=== PATIENT | female | born 1960 | race Two or more races ===

== ENCOUNTER 2022-02-06 11:54 | Inpatient (IN) | payer OTHER ==
[~2022-02-06] VITALS: Ht 167.6 cm; Wt 66.7 kg
[2022-02-06] MEDS ORDERED: LORAZEPAM1 MG PO (14:24)
[2022-02-13] MEDS ORDERED: OPTIMAL D31250 MCG (08:35)
[2022-02-13] MEDS ORDERED: VALACYCLOVIR1000 MG (08:35)
[2022-02-13] MEDS ORDERED: BENADRYL25 MG (08:35)
[2022-02-14] MEDS ORDERED: TYLENOL ARTHRI650 MG PO (09:08)
[2022-02-14] MEDS ORDERED: MIRALAX17 GM PO (09:08)
[2022-02-14] MEDS ORDERED: ULTRAM50 MG PO (09:08)
== END 2022-02-14 14:49 | disposition home or self-care (01) | DRG 349 ==
LOC: ADM 13:15 → CIR.AMB 02-12 11:37 → SURH 02-12 13:15 → CIR.AMB 02-12 13:15 → EDSTATUS 02-12 13:15 → SURG 02-12 23:16
PROVIDERS: ADMIT Surgery; ATTEND Surgery
PROC: 0WUF4JZ Supplement Abdominal Wall with Synthetic Substitute, Percutaneous Endoscopic Approach (ICD-10-PCS; 2022-02-12)
PROC: 0DNP4ZZ Release Rectum, Percutaneous Endoscopic Approach (ICD-10-PCS; principal; 2022-02-12 12:30)
DX: K43.0 Incisional hernia with obstruction, without gangrene (principal); K42.0 Umbilical hernia with obstruction, without gangrene; I10 Essential (primary) hypertension; Z20.822 Contact with and (suspected) exposure to COVID-19

== ENCOUNTER 2024-07-11 10:32 | Emergency (ER) | payer OTHER ==
[~2024-07-11] VITALS: Ht 167.6 cm; Wt 76.2 kg
[~2024-07-11 10:32] MED LIST: BENADRYL25 MG; LORAZEPAM1 MG PO; MIRALAX17 GM PO; OPTIMAL D31250 MCG; TYLENOL ARTHRI650 MG PO; ULTRAM50 MG PO; VALACYCLOVIR1000 MG
[2024-07-11] MEDS ORDERED: LORAZEPAM1 MG (10:58)
[2024-07-11 13:07] LABS: HEMATOCRIT 37.3 % (36.0-45.00); HEMOGLOBIN 12.3 g/dL (12.0-15.00); MEAN CELL VOLUME 90.4 fL (80.00-100.00); MEAN CORPUSCULAR HEMOGLOBIN 29.9 pg (27.00-32.0); PLATELET COUNT 216 K/uL (150-450); RED BLOOD COUNT 4.13 M/uL (4.00-6.00); RED CELL DISTRIBUTION WIDTH 13.8 % (11.5-14.5)
[2024-07-11 13:19] LABS: URINE APPEARANCE Clear; URINE BILIRRUBIN Negative (NEGATIVE); URINE BLOOD Negative; URINE COLOR Yellow; URINE GLUCOSE Negative (NEGATIVE); URINE KETONE Negative (NEGATIVE); URINE LEUKOCYTE Negative; URINE NITRATE Negative; URINE PROTEIN Negative (NEGATIVE); URINE UROBILINOGEN 0.2 E.U./dl
[2024-07-11 13:20] LABS: URINE BACTERIA 11.3 uL (0.0-1933); URINE RBC 8.2 uL (0.0-20.8)
[2024-07-11 13:24] LABS: URINE EPITHELIAL CELLS 1.2 uL (0.0-38.8); URINE WBC 0 uL (0.0-23.2)
[2024-07-11 14:14] LABS: CALCIUM 9.4 mg/dL (8.5-10.1); CREATININE SERUM 0.38 mg/dL (0.55-1.02); GFR 171.6; POTASSIUM 4.77 mEq/L (3.5-5.1)
== END 2024-07-11 16:29 | disposition home or self-care (01) ==
LOC: ER 10:33
PROVIDERS: General Practice
DX: R53.81 Other malaise (principal); R60.9 Edema, unspecified; I10 Essential (primary) hypertension

== ENCOUNTER 2025-06-17 12:36 | Emergency (ER) | payer OTHER ==
[~2025-06-17] VITALS: Ht 167.6 cm; Wt 74.4 kg
[~2025-06-17 12:36] MED LIST changes: +LORAZEPAM1 MG
[2025-06-17] MEDS ORDERED: KETOROLAC TROMETHAMINE 30 MG VIAL IV ONE (15:15)
[2025-06-17 15:48] LABS: BASO % 0.6 % (0.1-1.2); EOS # 0.10 (0.04-0.54); EOS % 1.5 % (0.7-7.0); LYMPH # 2.69 (1.18-3.74); LYMPH % 40.9 % (19.3-53.1); MEAN PLATELET VOLUME 9.70 fl (9.4-12.4); MONO # 0.49 (0.24-0.82); MONO % 7.5 % (4.7-12.5); NEUT # 3.23 (1.56-6.13); NEUT % 49.2 % (34.0-71.1); RED CELL DISTRIBUTION WIDTH 12.8 % (11.6-14.4)
[2025-06-17 16:06] LABS: URINE APPEARANCE Turbid; URINE BILIRRUBIN Negative (NEGATIVE); URINE BLOOD Negative; URINE COLOR Yellow; URINE GLUCOSE Negative (NEGATIVE); URINE KETONE Negative (NEGATIVE); URINE LEUKOCYTE Negative; URINE NITRATE Negative; URINE PROTEIN Negative (NEGATIVE); URINE UROBILINOGEN 0.2 E.U./dl
[2025-06-17 16:10] LABS: URINE BACTERIA 321.5 uL (0.0-1933); URINE EPITHELIAL CELLS 19.5 uL (0.0-38.8); URINE RBC 38.8 uL (0.0-20.8); URINE WBC 2.7 uL (0.0-23.2)
[2025-06-17 16:16] LABS: URINE CAST 0.00 uL (0.0-1.40)
[2025-06-17 16:21] LABS: ALT/SGPT 33.0 U/L (12-78); AST/SGOT 23.0 U/L (15-37); BILIRUBIN TOTAL 0.31 mg/dL (0.3-1.2); BILIRUBIN,CONJUGATED 0.11 mg/dL (0.0-0.2); BUN CREA RATIO 27.0 (7.0-25.0); CREATININE SERUM 0.48 mg/dL (0.55-1.02); GFR 131.05; GLOBULINA 2.8 G/DL (2.4-3.5); GLUCOSE FASTING 134.0 mg/dL (65-100); OSMOLALITY SERUM 287.0 MOSM/KG (275-295)
[2025-06-17] MEDS ORDERED: DICLOFENAC SODI50 MG PO (18:54)
== END 2025-06-17 19:02 | disposition home or self-care (01) ==
LOC: ER 12:36
PROVIDERS: General Practice
DX: R10.9 Unspecified abdominal pain (principal)
CPT/HCPCS: 36415; 74176; 96372; 99284; J1885